=== PATIENT | male | born 1975 | race Caucasian/White ===

== ENCOUNTER 2017-09-11 21:16 | Emergency (ER) | payer MEDICAID ==
[~2017-09-11] VITALS: Ht 188 cm; Wt 137.9 kg
[~2017-09-11 21:16] MED LIST: ALBU8.5H8 IH; ASCO-238 PO; CELE200C PO; DEXL60CA3 PO; FEXO180T94 PO; FLUT16SP10 IH; HYDR-569 PO; KETO10TA2 PO; LACT1CAP65 PO; PANT-47 PO; SERT50TA PO
[2017-09-11] MEDS ORDERED: proparacaine 0.5% ophthalmic drops 15ml LEFTEYE ONE (23:25)
[2017-09-11] MEDS ORDERED: PRED5DRO OP (23:32)
[2017-09-11] MEDS ORDERED: DOXY100C2 PO (23:32)
[2017-09-12 00:31] VITALS: BP 135/72
== END 2017-09-12 00:33 | disposition home or self-care (01) ==
LOC: ER 21:17
DX: H00.14 Chalazion left upper eyelid (principal); K21.9 Gastro-esophageal reflux disease without esophagitis; Z98.890 Other specified postprocedural states; Z79.899 Other long term (current) drug therapy
CPT/HCPCS: 99283

== ENCOUNTER 2017-11-16 19:43 | Inpatient (IN) | payer MEDICAID ==
[~2017-11-16] VITALS: Ht 188 cm; Wt 136.0 kg
[~2017-11-16 19:43] MED LIST changes: +PRED5DRO OP
[2017-11-16 20:26] LABS: BASOPHILS % (AUTO) 0.1 % (0-1); EOSINOPHILS % (AUTO) 0.2 % (0-6); HEMATOCRIT 47.3 % (42.0-52.0); HEMOGLOBIN 16.3 g/dl (14.0-17.9); LYMPHOCYTES # (AUTO) 0.7 X10'3 (1.1-4.8); LYMPHOCYTES % (AUTO) 4.8 % (21-51); MEAN CORPUSCULAR HEMOGLOBIN 29.1 PG (27.0-31.0); MEAN CORPUSCULAR HGB CONC 34.5 % (33.0-36.5); MEAN CORPUSCULAR VOLUME 84.5 FL (78-98); MEAN PLATELET VOLUME 7.4 FL (7.4-10.4); MONOCYTES # (AUTO) 0.6 X10'3 (0-0.9); MONOCYTES % (AUTO) 3.6 % (2-12); NEUTROPHILS # (AUTO) 14.3 X10'3 (1.8-7.7); NEUTROPHILS % (AUTO) 91.3 % (42-75); PLATELET COUNT 233 X10'3 (140-440); RED CELL DISTRIBUTION WIDTH 13.8 % (11.5-14.5); WHITE BLOOD COUNT 15.7 X10'3 (4.5-11.0)
[2017-11-16 20:41] LABS: D-DIMER 0.61 MG/L FEU (0-0.50); PARTIAL THROMBOPLASTIN TIME 28 SECONDS (22-32); PROTHROMBIN TIME 10.1 SECONDS (9.0-12.0)
[2017-11-16 20:46] LABS: ALANINE AMINOTRANSFERASE 36 U/L (12-78); ALBUMIN 4.1 G/DL (3.4-5.0); ALBUMIN/GLOBULIN RATIO 1.1 (1.1-1.5); ALKALINE PHOSPHATASE 89 IU/L (46-116); ANION GAP 12 (8-16); ASPARTATE AMINO TRANSFERASE 20 U/L (10-37); BILIRUBIN,TOTAL 1.9 MG/DL (0.1-1.0); BLOOD UREA NITROGEN 12 MG/DL (7-18); BUN/CREATININE RATIO 11.1 (5.4-32.0); CALCIUM 8.8 MG/DL (8.5-10.1); CHLORIDE 103 MMOL/L (99-107); CREATININE 1.08 MG/DL (0.60-1.10); GLUCOSE 136 MG/DL (70-104); POTASSIUM 3.9 MMOL/L (3.5-5.1); SODIUM 141 MMOL/L (135-145); TOTAL CARBON DIOXIDE 26.2 MMOL/L (24-32); TOTAL PROTEIN 7.8 G/DL (6.4-8.2); eGFR 75 ML/MIN
[2017-11-16] MEDS ORDERED: levoFLOXACIN-Levaquin 500mg/D5 100 ML IV ONE (21:05)
[2017-11-16] MEDS ORDERED: normal saline 1000ml 1,000 ML IV ONE ×2 (21:05)
[2017-11-16] MEDS ORDERED: ondansetron/PF 4mg/2ml inj IV ONE ×2 (21:10→22:15)
[2017-11-16] MEDS ORDERED: iohexol 350MG/ML 100ml bottle IV ONE ×2 (21:28→21:42)
[2017-11-16] MEDS ORDERED: pantoprazole 40 MG vial IV ONE (22:15)
[2017-11-16] MEDS ORDERED: magnesium 4gm in 100ml NS 100 ML IV PRN (23:50)
[2017-11-16] MEDS ORDERED: ipratropium/albuterol 3ml nebule NEB PRN (23:50)
[2017-11-16] MEDS ORDERED: acetaminophen 325mg tablet PO PRN (23:50)
[2017-11-16] MEDS ORDERED: ondansetron/PF 4mg/2ml inj IV PRN (23:50)
[2017-11-16] MEDS ORDERED: morphine 4 MG/ML inj SYRINge IV PRN ×2 (23:50)
[2017-11-16] MEDS ORDERED: potassium Cl 40MEQ/NS 500ml 500 ML IV PRN ×2 (23:50)
[2017-11-16] MEDS ORDERED: magnesium 2GM in 50ml NS 50 ML IV PRN (23:50)
[2017-11-16] MEDS ORDERED: acetaminophen 650mg rectal suppository RC PRN (23:50)
[2017-11-16] MEDS: pantoprazole 40 MG vial IV SCH (23:50)
[2017-11-16] MEDS ORDERED: bisacodyl 10mg suppository rectal RC PRN (23:50)
[2017-11-16] MEDS ORDERED: ZOLP10TA5 PO (23:53)
[2017-11-16] MEDS ORDERED: METO-292 PO (23:53)
[2017-11-16] MEDS ORDERED: LORA10TA7 PO (23:53)
[2017-11-16] MEDS ORDERED: ALFU10TA PO (23:53)
[2017-11-16] MEDS ORDERED: OXYB10TA4 PO (23:53)
[2017-11-17] MEDS: piperacillin/tazo 3.375gm/50ml 50 ML IV SCH ×4 (00:25→20:36)
[2017-11-17] MEDS: normal saline 1000ml 1,000 ML IV SCH ×3 (00:26→13:35)
[2017-11-17 06:07] LABS: BASOPHILS % (AUTO) 0 % (0-1); EOSINOPHILS # (AUTO) 0.3 X10'3 (0-0.9); HEMATOCRIT 42.3 % (42.0-52.0); HEMOGLOBIN 14.6 g/dl (14.0-17.9); LYMPHOCYTES % (AUTO) 9.8 % (21-51); MEAN CORPUSCULAR HEMOGLOBIN 29.7 PG (27.0-31.0); MEAN CORPUSCULAR HGB CONC 34.5 % (33.0-36.5); MEAN CORPUSCULAR VOLUME 86.2 FL (78-98); MEAN PLATELET VOLUME 7.5 FL (7.4-10.4); MONOCYTES # (AUTO) 0.7 X10'3 (0-0.9); MONOCYTES % (AUTO) 6.7 % (2-12); NEUTROPHILS # (AUTO) 8.4 X10'3 (1.8-7.7); NEUTROPHILS % (AUTO) 80.5 % (42-75); PLATELET COUNT 222 X10'3 (140-440); RED BLOOD COUNT 4.91 X10'6 (4.70-6.10); RED CELL DISTRIBUTION WIDTH 13.8 % (11.5-14.5); WHITE BLOOD COUNT 10.5 X10'3 (4.5-11.0)
[2017-11-17] MEDS: enoxaparin 40mg/0.4ml syringe SQ SCH (06:48)
[2017-11-17 06:51] LABS: ALANINE AMINOTRANSFERASE 28 U/L (12-78); ALBUMIN 3.2 G/DL (3.4-5.0); ALBUMIN/GLOBULIN RATIO 1.1 (1.1-1.5); ALKALINE PHOSPHATASE 66 IU/L (46-116); ANION GAP 9 (8-16); ASPARTATE AMINO TRANSFERASE 16 U/L (10-37); BILIRUBIN,TOTAL 1.9 MG/DL (0.1-1.0); BLOOD UREA NITROGEN 11 MG/DL (7-18); BUN/CREATININE RATIO 11.3 (5.4-32.0); CALCIUM 8.3 MG/DL (8.5-10.1); CHLORIDE 107 MMOL/L (99-107); CREATININE 0.97 MG/DL (0.60-1.10); GLUCOSE 109 MG/DL (70-104); MAGNESIUM 1.9 MG/DL (1.5-2.4); POTASSIUM 3.5 MMOL/L (3.5-5.1); SODIUM 142 MMOL/L (135-145); TOTAL CARBON DIOXIDE 26.2 MMOL/L (24-32); TOTAL PROTEIN 6.2 G/DL (6.4-8.2); eGFR 84 ML/MIN
[2017-11-17] MEDS: lactobacillus rhamnosus 10,000 MMU CELLS/CAPSULE PO SCH ×2 (07:32→20:37)
[2017-11-17] MEDS: K and/or MAG REPLACEMENT MC SCH (07:33)
[2017-11-17] MEDS: pantoprazole 40 MG vial IV SCH ×2 (07:33→20:31)
[2017-11-17 13:14] VITALS: BP 102/70
[2017-11-17 20:00] VITALS: BP 128/81
[2017-11-17] MEDS: oxybutynin 5mg tablet PO SCH (20:38)
[2017-11-17] MEDS: benzocaine/menthol oral lozeng 1 EACH BOX MM PRN (20:40)
[2017-11-17] MEDS ORDERED: tamsulosin 0.4mg capsule PO SCH (21:00)
[2017-11-17] MEDS ORDERED: sertraline 50mg tablet PO SCH (21:00)
[2017-11-17] MEDS ORDERED: zolpidem 5mg tablet PO PRN (21:00)
[2017-11-18] VITALS: BP 116/65
[2017-11-18] MEDS: normal saline 1000ml 1,000 ML IV SCH (00:17)
[2017-11-18] MEDS: piperacillin/tazo 3.375gm/50ml 50 ML IV SCH ×2 (02:55→07:33)
[2017-11-18 05:42] LABS: BASOPHILS % (AUTO) 0.1 % (0-1); EOSINOPHILS # (AUTO) 0.4 X10'3 (0-0.9); EOSINOPHILS % (AUTO) 5.1 % (0-6); HEMATOCRIT 39.5 % (42.0-52.0); HEMOGLOBIN 13.5 g/dl (14.0-17.9); LYMPHOCYTES # (AUTO) 1.1 X10'3 (1.1-4.8); MEAN CORPUSCULAR HEMOGLOBIN 29.4 PG (27.0-31.0); MEAN CORPUSCULAR HGB CONC 34.1 % (33.0-36.5); MEAN PLATELET VOLUME 7.5 FL (7.4-10.4); MONOCYTES # (AUTO) 0.7 X10'3 (0-0.9); MONOCYTES % (AUTO) 9.2 % (2-12); NEUTROPHILS # (AUTO) 5.9 X10'3 (1.8-7.7); NEUTROPHILS % (AUTO) 72.6 % (42-75); PLATELET COUNT 210 X10'3 (140-440); RED BLOOD COUNT 4.59 X10'6 (4.70-6.10); RED CELL DISTRIBUTION WIDTH 14.1 % (11.5-14.5); WHITE BLOOD COUNT 8.2 X10'3 (4.5-11.0)
[2017-11-18 06:05] LABS: ALANINE AMINOTRANSFERASE 22 U/L (12-78); ALKALINE PHOSPHATASE 61 IU/L (46-116); ANION GAP 9 (8-16); ASPARTATE AMINO TRANSFERASE 17 U/L (10-37); BILIRUBIN,TOTAL 1.2 MG/DL (0.1-1.0); BLOOD UREA NITROGEN 11 MG/DL (7-18); BUN/CREATININE RATIO 10.6 (5.4-32.0); CALCIUM 8.2 MG/DL (8.5-10.1); CHLORIDE 108 MMOL/L (99-107); CREATININE 1.04 MG/DL (0.60-1.10); GLUCOSE 96 MG/DL (70-104); MAGNESIUM 1.8 MG/DL (1.5-2.4); POTASSIUM 3.6 MMOL/L (3.5-5.1); SODIUM 143 MMOL/L (135-145); TOTAL CARBON DIOXIDE 26.3 MMOL/L (24-32); eGFR 78 ML/MIN
[2017-11-18] MEDS ORDERED: metoclopramide 10mg tablet PO SCH (07:00)
[2017-11-18 07:03] VITALS: BP 106/71
[2017-11-18] MEDS: benzocaine/menthol oral lozeng 1 EACH BOX MM PRN (07:16)
[2017-11-18] MEDS: pantoprazole 40 MG vial IV SCH (07:33)
[2017-11-18] MEDS: enoxaparin 40mg/0.4ml syringe SQ SCH (07:34)
[2017-11-18] MEDS: lactobacillus rhamnosus 10,000 MMU CELLS/CAPSULE PO SCH (07:34)
[2017-11-18] MEDS: oxybutynin 5mg tablet PO SCH (07:34)
[2017-11-18] MEDS: K and/or MAG REPLACEMENT MC SCH (07:45)
[2017-11-18] MEDS ORDERED: loratadine 10mg tablet PO SCH (08:00)
[2017-11-18] MEDS ORDERED: celeCOXIB 100mg capsule PO SCH (08:00)
[2017-11-18] MEDS ORDERED: LEVO500T2 PO (11:55)
[2017-11-18 12:00] VITALS: BP 103/58
== END 2017-11-18 14:50 | disposition home or self-care (01) | DRG 720 ==
LOC: ER 19:44 → ED HOLD 23:50 → EDBEDREQ 11-17 00:22 → EDBEDREQDT 11-17 00:22 → SUR 3N 11-17 13:07
PROVIDERS: ADMIT Family Medicine; ATTEND Family Medicine
PROC: B3201ZZ Computerized Tomography (CT Scan) of Thoracic Aorta using Low Osmolar Contrast (ICD-10-PCS; principal; 2017-11-16)
DX: A41.9 Sepsis, unspecified organism (principal); J69.0 Pneumonitis due to inhalation of food and vomit; Z96.652 Presence of left artificial knee joint; K21.9 Gastro-esophageal reflux disease without esophagitis; N40.0 Benign prostatic hyperplasia without lower urinary tract symptoms; Z85.01 Personal history of malignant neoplasm of esophagus; Z90.49 Acquired absence of other specified parts of digestive tract; Z80.0 Family history of malignant neoplasm of digestive organs; Z80.3 Family history of malignant neoplasm of breast; Z80.8 Family history of malignant neoplasm of other organs or systems; Z82.49 Family history of ischemic heart disease and other diseases of the circulatory system; Z83.3 Family history of diabetes mellitus; Z87.442 Personal history of urinary calculi; Z87.891 Personal history of nicotine dependence; Z90.3 Acquired absence of stomach [part of]; Z98.84 Bariatric surgery status
CPT/HCPCS: 36415; 71045; 71275; 80053; 83605; 83735; 84484; 85025; 85379; 85610; 85730; 87040; 87070; 92616; 93005; 94760; 96361; 96365; 96375; 96376; 99285; C9113; J1650; J1956; J2405; J2543; J7030; J8597; Q9967

== ENCOUNTER 2018-04-05 18:45 | Emergency (ER) | payer MEDICAID ==
[~2018-04-05] VITALS: Ht 188 cm; Wt 140.9 kg
[~2018-04-05 18:45] MED LIST changes: -ALBU8.5H8 IH; +ALFU10TA PO; -ASCO-238 PO; -FEXO180T94 PO; -HYDR-569 PO; -KETO10TA2 PO; -LACT1CAP65 PO; +LORA10TA7 PO; +METO-292 PO; +OXYB10TA4 PO; -PANT-47 PO; -PRED5DRO OP; +ZOLP10TA5 PO
[2018-04-05 19:21] LABS: BASOPHILS % (AUTO) 0.1 % (0-1); EOSINOPHILS # (AUTO) 0.3 X10'3 (0-0.9); HEMATOCRIT 44.7 % (42.0-52.0); HEMOGLOBIN 15.1 g/dl (14.0-17.9); LYMPHOCYTES # (AUTO) 1.2 X10'3 (1.1-4.8); LYMPHOCYTES % (AUTO) 10.9 % (21-51); MEAN CORPUSCULAR HEMOGLOBIN 29.3 PG (27.0-31.0); MEAN CORPUSCULAR HGB CONC 33.8 % (33.0-36.5); MEAN CORPUSCULAR VOLUME 86.9 FL (78-98); MEAN PLATELET VOLUME 7.2 FL (7.4-10.4); MONOCYTES # (AUTO) 0.9 X10'3 (0-0.9); MONOCYTES % (AUTO) 8.2 % (2-12); NEUTROPHILS # (AUTO) 8.2 X10'3 (1.8-7.7); NEUTROPHILS % (AUTO) 77.8 % (42-75); PLATELET COUNT 271 X10'3 (140-440); RED BLOOD COUNT 5.14 X10'6 (4.70-6.10); RED CELL DISTRIBUTION WIDTH 13.5 % (11.5-14.5); WHITE BLOOD COUNT 10.6 X10'3 (4.5-11.0)
[2018-04-05 19:35] LABS: ALANINE AMINOTRANSFERASE 28 U/L (12-78); ALBUMIN 3.7 G/DL (3.4-5.0); ALKALINE PHOSPHATASE 82 IU/L (46-116); ANION GAP 6 (8-16); ASPARTATE AMINO TRANSFERASE 20 U/L (10-37); BILIRUBIN,TOTAL 1.1 MG/DL (0.1-1.0); BLOOD UREA NITROGEN 18 MG/DL (7-18); BUN/CREATININE RATIO 12.6 (5.4-32.0); CALCIUM 8.8 MG/DL (8.5-10.1); CHLORIDE 105 MMOL/L (99-107); CREATININE 1.43 MG/DL (0.60-1.10); GLUCOSE 101 MG/DL (70-104); POTASSIUM 3.9 MMOL/L (3.5-5.1); SODIUM 141 MMOL/L (135-145); TOTAL PROTEIN 7.3 G/DL (6.4-8.2); eGFR 54 ML/MIN
[2018-04-05 19:55] LABS: CLARITY,URINE CLEAR (Clear); COLOR,URINE YELLOW (Yellow); GLUCOSE, URINE NEGATIVE (Neg); KETONES,URINE NEGATIVE (Neg); LEUKOCYTE ESTERASE ,URINE NEGATIVE (Neg); NITRITES, URINE NEGATIVE (Neg); OCCULT BLOOD,URINE LARGE (Neg); PROTEIN,URINE NEGATIVE (Neg); UROBILINOGEN,URINE 0.2 E.U/dL (0.2-1.0)
[2018-04-05] MEDS ORDERED: ondansetron/PF 4mg/2ml inj IV ONE (19:55)
[2018-04-05] MEDS ORDERED: ketorolac trometh. 30mg/ml inj. IV ONE (19:55)
[2018-04-05] MEDS ORDERED: normal saline 1000ml 1,000 ML IV ONE (19:55)
[2018-04-05] MEDS ORDERED: HYDROcodone/acetaminophen 5mg/325mg tablet PO ONE (19:55)
[2018-04-05] MEDS ORDERED: TADA20TA PO (19:58)
[2018-04-05] MEDS ORDERED: ONDA8TAB9 PO (19:58)
[2018-04-05] MEDS ORDERED: HYDR-3965 PO (19:58)
[2018-04-05 20:15] LABS: UA COLLECTION TYPE VOIDED
[2018-04-05 20:23] LABS: SQUAMOUS EPITHELIAL CELL,UR FEW /LPF (FEW)
[2018-04-05 20:24] LABS: RBC,URINE 20-50 /HPF (0-2)
[2018-04-05 20:25] LABS: BACTERIA,URINE 1+ /HPF (Neg); WBC,URINE 0-4 /HPF (0-4)
[2018-04-05 20:42] VITALS: BP 124/69
== END 2018-04-05 20:43 | disposition home or self-care (01) ==
LOC: ER 18:45
DX: N20.0 Calculus of kidney (principal); K21.9 Gastro-esophageal reflux disease without esophagitis; N40.0 Benign prostatic hyperplasia without lower urinary tract symptoms
CPT/HCPCS: 36415; 80053; 81001; 85025; 85610; 96374; 96375; 99284; J1885; J2405; J7030

== ENCOUNTER 2018-06-25 14:15 | Emergency (ER) | payer SELFPAY ==
[~2018-06-25] VITALS: Ht 188 cm; Wt 113.5 kg
[~2018-06-25 14:15] MED LIST changes: +ONDA8TAB9 PO; +TADA20TA PO
[2018-06-25 14:18] VITALS: BP 121/80
[2018-06-25] MEDS ORDERED: TETanus/Pertussis (Acell)/Diphther VAC/PF (Tdap-Adult) 0.5ml syringe IM ONE (14:45)
== END 2018-06-25 15:58 | disposition home or self-care (01) ==
LOC: ER 14:15
DX: S61.210A Laceration without foreign body of right index finger without damage to nail, initial encounter (principal); K21.9 Gastro-esophageal reflux disease without esophagitis; Z87.442 Personal history of urinary calculi; Z98.890 Other specified postprocedural states; Z98.84 Bariatric surgery status; Z56.0 Unemployment, unspecified; Z79.899 Other long term (current) drug therapy; W26.0XXA Contact with knife, initial encounter; Y93.89 Activity, other specified; Y92.89 Other specified places as the place of occurrence of the external cause; Y99.9 Unspecified external cause status
CPT/HCPCS: 12001; 90471; 90715; 99283

== ENCOUNTER 2018-10-17 11:31 | Emergency (ER) | payer MEDICAID ==
[~2018-10-17] VITALS: Ht 188 cm; Wt 145.4 kg
[~2018-10-17 11:31] MED LIST changes: +AMOX-580 PO; +DEC4T PO; +FLUT16SP2 BOTHNARES
[2018-10-17 11:40] VITALS: BP 127/94
== END 2018-10-17 13:29 | disposition home or self-care (01) ==
LOC: ER 11:32
DX: B34.9 Viral infection, unspecified (principal); K21.9 Gastro-esophageal reflux disease without esophagitis; Z87.442 Personal history of urinary calculi; Z98.890 Other specified postprocedural states; Z98.84 Bariatric surgery status; Z56.0 Unemployment, unspecified; Z79.899 Other long term (current) drug therapy
CPT/HCPCS: 71045; 99283

== ENCOUNTER 2019-09-01 17:08 | Emergency (ER) | payer MEDICAID ==
[~2019-09-01] VITALS: Ht 188 cm; Wt 149.0 kg
[~2019-09-01 17:08] MED LIST changes: -AMOX-580 PO
[2019-09-01] MEDS ORDERED: LIDOcaine 1% W/epiNEPHrine 1:200,000 10ml vial IJ ONE (18:45)
[2019-09-01] MEDS ORDERED: CLIN-90 PO (19:00)
[2019-09-01 19:08] VITALS: BP 135/87
== END 2019-09-01 19:15 | disposition home or self-care (01) ==
LOC: ER 17:09
DX: L02.214 Cutaneous abscess of groin (principal); K21.9 Gastro-esophageal reflux disease without esophagitis; Z56.0 Unemployment, unspecified; Z87.442 Personal history of urinary calculi; Z98.890 Other specified postprocedural states; Z98.84 Bariatric surgery status; Z79.899 Other long term (current) drug therapy
CPT/HCPCS: 10060; 99283

== ENCOUNTER 2020-08-20 12:03 | Emergency (ER) | payer MEDICAID ==
[~2020-08-20] VITALS: Ht 185.4 cm; Wt 140.9 kg
[~2020-08-20 12:03] MED LIST changes: +CLIN-97 PO
[2020-08-20 12:10] VITALS: BP 129/85
[2020-08-20] MEDS ORDERED: oxyCODONE/APAP 10/325mg tablet PO ONE (12:30)
[2020-08-20] MEDS ORDERED: OXYC-145 PO (12:47)
== END 2020-08-20 13:36 | disposition home or self-care (01) ==
LOC: ER 12:03
DX: M25.562 Pain in left knee (principal); M25.462 Effusion, left knee; K21.9 Gastro-esophageal reflux disease without esophagitis; Z87.442 Personal history of urinary calculi; Z85.9 Personal history of malignant neoplasm, unspecified; Z98.890 Other specified postprocedural states; Z72.89 Other problems related to lifestyle; Z56.0 Unemployment, unspecified; Z79.2 Long term (current) use of antibiotics; Z79.899 Other long term (current) drug therapy
CPT/HCPCS: 29505; 73560; 99283

== ENCOUNTER 2021-04-06 11:04 | Inpatient (IN) | payer MEDICAID ==
[2021-04-06] VITALS (14 sets, daily range): BP systolic 116–139; BP diastolic 71–86
[~2021-04-06] VITALS: Ht 188 cm; Wt 134.6 kg
[~2021-04-06 11:04] MED LIST changes: +OXYC-145 PO
[2021-04-06 12:15] LABS: BASOPHILS % (AUTO) 0.1 % (0-1); EOSINOPHILS # (AUTO) 0.2 X10'3 (0-0.9); EOSINOPHILS % (AUTO) 1.7 % (0-6); HEMATOCRIT 41.7 % (42.0-52.0); HEMOGLOBIN 13.2 g/dl (14.0-17.9); LYMPHOCYTES % (AUTO) 10.2 % (21-51); MEAN CORPUSCULAR HEMOGLOBIN 26.4 PG (27.0-31.0); MEAN CORPUSCULAR HGB CONC 31.8 g/dL (33.0-36.5); MEAN PLATELET VOLUME 7.5 FL (7.4-10.4); MONOCYTES # (AUTO) 0.9 X10'3 (0-0.9); MONOCYTES % (AUTO) 9.8 % (2-12); NEUTROPHILS # (AUTO) 7.4 X10'3 (1.8-7.7); NEUTROPHILS % (AUTO) 78.2 % (42-75); PLATELET COUNT 289 X10'3 (140-440); RED BLOOD COUNT 5.02 X10'6 (4.70-6.10); RED CELL DISTRIBUTION WIDTH 14.5 % (11.5-14.5); WHITE BLOOD COUNT 9.5 X10'3 (4.5-11.0)
[2021-04-06 12:16] LABS: CLARITY,URINE CLOUDY (Clear); COLOR,URINE YELLOW (Yellow); GLUCOSE, URINE NEGATIVE (Neg); KETONES,URINE NEGATIVE (Neg); LEUKOCYTE ESTERASE ,URINE NEGATIVE (Neg); NITRITES, URINE NEGATIVE (Neg); OCCULT BLOOD,URINE LARGE (Neg); PROTEIN,URINE NEGATIVE (Neg); UROBILINOGEN,URINE 0.2 E.U/dL (0.2-1.0)
[2021-04-06 12:22] LABS: UA COLLECTION TYPE CLN CATCH MIDSTREAM
[2021-04-06 12:23] LABS: MUCUS STRANDS FEW /LPF (Neg); SQUAMOUS EPITHELIAL CELL,UR FEW /LPF (FEW)
[2021-04-06 12:24] LABS: RBC,URINE TNTC /HPF (0-2); WBC,URINE 0-4 /HPF (0-4)
[2021-04-06 12:25] LABS: BACTERIA,URINE 1+ /HPF (Neg)
[2021-04-06 12:28] LABS: ALANINE AMINOTRANSFERASE 21 U/L (12-78); ALBUMIN 4.2 G/DL (3.4-5.0); ALBUMIN/GLOBULIN RATIO 1.3 (1.1-1.5); ALKALINE PHOSPHATASE 87 IU/L (46-116); ANION GAP 9 (8-16); ASPARTATE AMINO TRANSFERASE 15 U/L (10-37); BILIRUBIN,TOTAL 1.4 MG/DL (0.1-1.0); BLOOD UREA NITROGEN 19 MG/DL (7-18); BUN/CREATININE RATIO 13.7 (5.4-32.0); CALCIUM 8.5 MG/DL (8.5-10.1); CHLORIDE 108 MMOL/L (99-107); CREATININE 1.39 MG/DL (0.60-1.10); GLUCOSE 102 MG/DL (70-104); POTASSIUM 3.9 MMOL/L (3.5-5.1); SODIUM 140 MMOL/L (135-145); TOTAL CARBON DIOXIDE 22.6 MMOL/L (24-32); TOTAL PROTEIN 7.5 G/DL (6.4-8.2); eGFR 55 ML/MIN
[2021-04-06] MEDS ORDERED: morphine 4 MG/ML inj SYRINge IV ONE (13:35)
[2021-04-06] MEDS ORDERED: ondansetron/PF 4mg/2ml inj IV ONE (13:35)
[2021-04-06] MEDS ORDERED: normal saline 1000ml 1,000 ML IV ONE (13:55)
[2021-04-06] MEDS ORDERED: magnesium hydroxide 30ml (MOM) UD suspension PO PRN (14:05)
[2021-04-06] MEDS ORDERED: mag hydrox/Alum hydrox/simeth 30ml oral suspension PO PRN (14:05)
[2021-04-06] MEDS ORDERED: ondansetron/PF 4mg/2ml inj IV PRN ×2 (14:05→14:55)
[2021-04-06] MEDS ORDERED: morphine 2 MG/ML inj. syringe IV PRN ×3 (14:05→14:55)
[2021-04-06] MEDS ORDERED: acetaminophen 325mg tablet PO PRN (14:05)
[2021-04-06] MEDS ORDERED: MELO-102 PO (14:12)
[2021-04-06] MEDS ORDERED: Meloxicam 15MG TAB PO PRN (14:45)
[2021-04-06] MEDS ORDERED: morphine 4 MG/ML inj SYRINge IV PRN (14:55)
[2021-04-06] MEDS ORDERED: ringers solution, lacted 1,000 ML IV ONE (14:55)
[2021-04-06] MEDS ORDERED: hydrALAZINE 20mg/ml inj. IV PRN (14:55)
[2021-04-06] MEDS ORDERED: famotidine/PF 10 mg/ml inj IV STA (14:55)
[2021-04-06] MEDS ORDERED: labetalol 20mg/4ml (5mg/ml) syringe IV PRN (14:55)
[2021-04-06] MEDS ORDERED: fentaNYL/PF 50MCG/1 ML 2ML syringe IV PRN ×2 (14:55)
[2021-04-06] MEDS ORDERED: ringers solution, lacted 1,000 ML IV SCH (14:55)
[2021-04-06] MEDS ORDERED: midazolam 1 mg/ML 2ml injection ONE (15:53)
[2021-04-06] MEDS ORDERED: fentaNYL/PF 50MCG/1 ML 2ML syringe ONE (15:53)
[2021-04-06] MEDS ORDERED: LIDOcaine 2% (20mg/ml) 5ml vial ONE (15:56)
[2021-04-06] MEDS ORDERED: succinylcholine 20mg/ml inj IV ONE (15:56)
[2021-04-06] MEDS ORDERED: propofol inj 20 ML IV ONE ×2 (15:56)
[2021-04-06] MEDS ORDERED: dexamethasone sod phosphate 4mg/ml inj. ONE (15:56)
[2021-04-06] MEDS ORDERED: ondansetron/PF 4mg/2ml inj ONE (15:57)
[2021-04-06] MEDS ORDERED: sevoflurane 250ml liquid IH ONE (16:20)
[2021-04-06] MEDS ORDERED: iohexol 300 MG/1 ML 50ml polymer ONE (16:22)
[2021-04-06] MEDS ORDERED: ceFAZolin 1000mg inj ONE ×2 (16:32)
--- NOTE | 2021-04-06 16:58 | NUR ---
Received from OR via , accompanied by Anesthesiologist DR PINO and report given by Anesthesiolgist. AWAKENS TO VOICE. VITALS STABLE. CHUCK PAIN.
--- NOTE | 2021-04-06 17:50 | NUR ---
Patient in room ED 4. I have received report from CHERRIE BEGUM and had the opportunity to ask questions and awaiting patients arrival
--- NOTE | 2021-04-06 17:58 | NUR ---
Report called to receiving nurse. Transferred via BED Belongings . Special Issues communicated to receiving nurse. AWAKE AND ORIENTED. VITALS STABLE. STATES PAIN IMPROVING. TO SURGICAL RM 350A AT THIS TIME.
--- NOTE | 2021-04-06 18:00 | NUR ---
Patient in room [facility] 350. I have received report from Braydon BEGUM and had the opportunity to ask questions and assume patient care.
--- NOTE | 2021-04-06 19:01 | NUR ---
patient settled in room at shift change report given to Imelda BEGUM
[2021-04-06] MEDS: docusate sod 100mg capsule PO SCH (19:24)
[2021-04-06] MEDS: oxybutynin 5mg tablet PO SCH (19:24)
[2021-04-06] MEDS ORDERED: zolpidem 5mg tablet PO PRN (21:00)
[2021-04-06] MEDS ORDERED: sertraline 50mg tablet PO SCH (21:00)
[2021-04-06] MEDS ORDERED: tamsulosin 0.4mg capsule PO SCH (21:00)
[2021-04-06] MEDS: normal saline 1000ml 1,000 ML IV SCH (22:34)
[2021-04-07] VITALS: BP 127/77
[2021-04-07] MEDS: normal saline 1000ml 1,000 ML IV SCH ×2 (00:05→10:05)
--- NOTE | 2021-04-07 06:40 | NUR ---
Patient in room [facility] 350. I have received report from Imelda BEGUM and had the opportunity to ask questions and assume patient care.
[2021-04-07 06:47] LABS: BASOPHILS % (AUTO) 0 % (0-1); EOSINOPHILS % (AUTO) 0 % (0-6); HEMATOCRIT 37.1 % (42.0-52.0); HEMOGLOBIN 11.8 g/dl (14.0-17.9); LYMPHOCYTES # (AUTO) 0.7 X10'3 (1.1-4.8); LYMPHOCYTES % (AUTO) 6.5 % (21-51); MEAN CORPUSCULAR HGB CONC 31.9 g/dL (33.0-36.5); MEAN CORPUSCULAR VOLUME 81.5 FL (78-98); MEAN PLATELET VOLUME 7.8 FL (7.4-10.4); MONOCYTES # (AUTO) 0.6 X10'3 (0-0.9); MONOCYTES % (AUTO) 5.2 % (2-12); NEUTROPHILS % (AUTO) 88.3 % (42-75); PLATELET COUNT 287 X10'3 (140-440); RED BLOOD COUNT 4.55 X10'6 (4.70-6.10); RED CELL DISTRIBUTION WIDTH 14.4 % (11.5-14.5); WHITE BLOOD COUNT 11.4 X10'3 (4.5-11.0)
[2021-04-07 06:58] LABS: ALBUMIN 3.4 G/DL (3.4-5.0); ANION GAP 11 (8-16); BLOOD UREA NITROGEN 17 MG/DL (7-18); BUN/CREATININE RATIO 13.9 (5.4-32.0); CHLORIDE 107 MMOL/L (99-107); CREATININE 1.22 MG/DL (0.60-1.10); GLUCOSE 141 MG/DL (70-104); POTASSIUM 3.9 MMOL/L (3.5-5.1); SODIUM 141 MMOL/L (135-145); TOTAL CARBON DIOXIDE 22.6 MMOL/L (24-32); eGFR 64 ML/MIN
[2021-04-07 07:00] VITALS: BP 129/82
--- NOTE | 2021-04-07 07:05 | NUR ---
Problems reprioritized. Patient report given, questions answered & plan of care reviewed with SHY Brock.
[2021-04-07] MEDS ORDERED: pantoprazole 40mg Tablet.DR PO SCH (08:00)
[2021-04-07] MEDS ORDERED: COVID-19 VACC, MRNA(PFIZER)/PF--BNT162b2 syringe IMVAC ONE (09:00)
[2021-04-07] MEDS: oxybutynin 5mg tablet PO SCH (09:21)
[2021-04-07] MEDS: docusate sod 100mg capsule PO SCH (09:21)
--- NOTE | 2021-04-07 09:52 | NUR ---
PAGER ID: [phone] MESSAGE: Delmy-Surg [id number] Re: sales Frank we don't carry Meloxicam what would you like to give him for pain
--- NOTE | 2021-04-07 10:40 | NUR ---
Per Dr Robert Jay for patient to be discharged his office will call patient for follow up visit. No need for any antibiotics.
--- NOTE | 2021-04-07 10:43 | NUR ---
PAGER ID: [phone] MESSAGE: Delmy-Surg [id number] Re: [id number] Dr Robert isaac for discharge his office will make follow up visiti, can I give Motrin to patient please call
[2021-04-07] MEDS ORDERED: ibuprofen 200mg tablet PO ONE (10:45)
--- NOTE | 2021-04-07 11:00 | NUR ---
Problems reprioritized. Patient report given, questions answered & plan of care reviewed with Shabbir BEGUM.
--- NOTE | 2021-04-07 11:09 | NUR ---
Patient in room [facility] 350. I have received report from SHY MACHUCA and had the opportunity to ask questions and assume patient care.
--- NOTE | 2021-04-07 11:58 | NUR ---
Patient is alert and oriented no complaints or s/s of apparent distress. Discussed with patient discharge instructions. Patient verbalizes understanding of teaching. New urine strainer, graduated cylinder and urinal given to patient to take home. Patient ready for dc and awaiting family for transport home. Patient has all personal belongings packed.
--- NOTE | 2021-04-07 12:03 | NUR ---
Patient dc'd with all personal belongings. Patient preferred to ambulate. He was escorted out by JONATAN Sherwood.
== END 2021-04-07 12:02 | disposition home or self-care (01) | DRG 465 ==
LOC: ER 11:04 → ED HOLD 14:07 → SUR 3N 18:05
PROVIDERS: ADMIT Family Medicine; ATTEND Family Medicine
PROC: BT141ZZ Fluoroscopy of Kidneys, Ureters and Bladder using Low Osmolar Contrast (ICD-10-PCS; 2021-04-06)
PROC: 0T788DZ Dilation of Bilateral Ureters with Intraluminal Device, Via Natural or Artificial Opening Endoscopic (ICD-10-PCS; principal; 2021-04-06 16:20)
PROC: XW023U6 Introduction of COVID-19 Vaccine into Muscle, Percutaneous Approach, New Technology Group 6 (ICD-10-PCS; 2021-04-07)
DX: N13.2 Hydronephrosis with renal and ureteral calculous obstruction (principal); N17.9 Acute kidney failure, unspecified; Z96.652 Presence of left artificial knee joint; K21.9 Gastro-esophageal reflux disease without esophagitis; Z20.822 Contact with and (suspected) exposure to COVID-19; N40.0 Benign prostatic hyperplasia without lower urinary tract symptoms; Z80.0 Family history of malignant neoplasm of digestive organs; Z80.3 Family history of malignant neoplasm of breast; Z80.8 Family history of malignant neoplasm of other organs or systems; Z82.49 Family history of ischemic heart disease and other diseases of the circulatory system; Z83.3 Family history of diabetes mellitus; Z85.01 Personal history of malignant neoplasm of esophagus; Z87.01 Personal history of pneumonia (recurrent); Z87.442 Personal history of urinary calculi; Z98.84 Bariatric surgery status; Z23 Encounter for immunization; Z79.899 Other long term (current) drug therapy
CPT/HCPCS: 0002A; 36415; 74176; 76000; 80048; 80053; 81001; 85025; 87081; 87635; 91300; 96374; 96375; 99285; A4618; C1758; C1769; C2617; G0378; J0330; J0690; J1100; J2001; J2250; J2270; J2405; J2704; J3010; J7030; Q9967

== ENCOUNTER 2021-06-22 19:37 | Emergency (ER) | payer MEDICAID ==
[~2021-06-22] VITALS: Ht 188 cm; Wt 138.6 kg
[~2021-06-22 19:37] MED LIST changes: -CELE200C PO; -CLIN-97 PO; -DEC4T PO; -FLUT16SP10 IH; -FLUT16SP2 BOTHNARES; -LORA10TA7 PO; +MELO-102 PO; -METO-292 PO; -ONDA8TAB9 PO; -OXYC-145 PO; -TADA20TA PO
[2021-06-22 19:46] VITALS: BP 152/101
[2021-06-22] MEDS ORDERED: bacitracin 15gm ointment TP ONE (20:10)
== END 2021-06-22 21:01 | disposition home or self-care (01) ==
LOC: ER 19:37
DX: S61.411A Laceration without foreign body of right hand, initial encounter (principal); K21.9 Gastro-esophageal reflux disease without esophagitis; Z87.442 Personal history of urinary calculi; Z85.9 Personal history of malignant neoplasm, unspecified; Z98.890 Other specified postprocedural states; Z72.89 Other problems related to lifestyle; Z56.0 Unemployment, unspecified; Z79.899 Other long term (current) drug therapy; W45.8XXA Other foreign body or object entering through skin, initial encounter; Y93.89 Activity, other specified; Y92.89 Other specified places as the place of occurrence of the external cause; Y99.8 Other external cause status
CPT/HCPCS: 12001; 99282; 99283; 99284

== ENCOUNTER 2023-04-24 21:30 | Emergency (ER) | payer MEDICAID ==
[~2023-04-24] VITALS: Ht 188 cm; Wt 136.4 kg
[2023-04-24 21:49] VITALS: BP 133/85; RESP 16
[2023-04-24 22:36] LABS: BASOPHILS % (AUTO) 0.5 % (0-1); EOSINOPHILS # (AUTO) 0.1 X10'3 (0-0.9); EOSINOPHILS % (AUTO) 1.2 % (0-6); HEMOGLOBIN 14.2 g/dl (14.0-17.9); LYMPHOCYTES # (AUTO) 0.5 X10'3 (1.1-4.8); LYMPHOCYTES % (AUTO) 10.4 % (21-51); MEAN CORPUSCULAR HEMOGLOBIN 28.9 PG (27.0-31.0); MEAN CORPUSCULAR HGB CONC 32.9 g/dL (33.0-36.5); MEAN CORPUSCULAR VOLUME 87.8 FL (78-98); MEAN PLATELET VOLUME 7.8 FL (7.4-10.4); MONOCYTES # (AUTO) 0.8 X10'3 (0-0.9); MONOCYTES % (AUTO) 15.4 % (2-12); NEUTROPHILS # (AUTO) 3.7 X10'3 (1.8-7.7); NEUTROPHILS % (AUTO) 72.5 % (42-75); PLATELET COUNT 223 X10'3 (140-440); RED CELL DISTRIBUTION WIDTH 14.2 % (11.5-14.5); WHITE BLOOD COUNT 5.1 X10'3 (4.5-11.0)
[2023-04-24 22:50] LABS: ALANINE AMINOTRANSFERASE 26 U/L (12-78); ALBUMIN 3.7 G/DL (3.4-5.0); ALBUMIN/GLOBULIN RATIO 1.1 (1.1-1.5); ALKALINE PHOSPHATASE 86 IU/L (46-116); ANION GAP 11 (8-16); ASPARTATE AMINO TRANSFERASE 21 U/L (10-37); BILIRUBIN,TOTAL 0.8 MG/DL (0.1-1.0); BLOOD UREA NITROGEN 8 MG/DL (7-18); BUN/CREATININE RATIO 7.9 (10.0-20.0); CALCIUM 8.7 MG/DL (8.5-10.1); CHLORIDE 104 MMOL/L (99-107); CREATININE 1.01 MG/DL (0.60-1.10); GLUCOSE 109 MG/DL (70-104); POTASSIUM 3.6 MMOL/L (3.5-5.1); SODIUM 138 MMOL/L (135-145); TOTAL CARBON DIOXIDE 23.5 MMOL/L (24-32); eCRCL 104 ML/MIN; eGFR 79 ML/MIN
[2023-04-24 23:22] VITALS: PULSE 106; O2SAT 98
[2023-04-24] MEDS ORDERED: acetaminophen 325mg tablet PO ONE (23:35)
[2023-04-25] MEDS ORDERED: NIRM1TAB PO (00:15)
[2023-04-25 00:30] VITALS: TEMP 101.6
[2023-04-25 01:38] LABS: PLATELET ESTIMATE NORMAL; TOTAL CELLS COUNTED 100
== END 2023-04-25 00:33 | disposition home or self-care (01) ==
LOC: ER 21:31
DX: U07.1 COVID-19 (principal); K21.9 Gastro-esophageal reflux disease without esophagitis; Z79.899 Other long term (current) drug therapy
CPT/HCPCS: 36415; 71045; 80053; 83605; 85007; 85025; 87040; 87502; 87503; 87811; 99284

== ENCOUNTER 2024-01-30 06:58 | Inpatient (IN) | payer MEDICAID ==
[2024-01-27 11:49] LABS: BASOPHILS % (AUTO) 0.3 % (0-1); EOSINOPHILS # (AUTO) 0.2 X10'3 (0-0.9); EOSINOPHILS % (AUTO) 3.5 % (0-6); HEMATOCRIT 36.2 % (42.0-52.0); HEMOGLOBIN 11.7 g/dl (14.0-17.9); LYMPHOCYTES # (AUTO) 1.4 X10'3 (1.1-4.8); LYMPHOCYTES % (AUTO) 21.3 % (21-51); MEAN CORPUSCULAR HEMOGLOBIN 26.7 PG (27.0-31.0); MEAN CORPUSCULAR HGB CONC 32.3 g/dL (33.0-36.5); MEAN CORPUSCULAR VOLUME 82.6 FL (78-98); MEAN PLATELET VOLUME 7.3 FL (7.4-10.4); MONOCYTES # (AUTO) 0.7 X10'3 (0-0.9); MONOCYTES % (AUTO) 10.4 % (2-12); NEUTROPHILS # (AUTO) 4.3 X10'3 (1.8-7.7); NEUTROPHILS % (AUTO) 64.5 % (42-75); PLATELET COUNT 299 X10'3 (140-440); RED BLOOD COUNT 4.38 X10'6 (4.70-6.10); RED CELL DISTRIBUTION WIDTH 15.2 % (11.5-14.5); WHITE BLOOD COUNT 6.7 X10'3 (4.5-11.0)
[2024-01-27 12:01] LABS: ALANINE AMINOTRANSFERASE 28 U/L (12-78); ALBUMIN 3.6 G/DL (3.4-5.0); ALBUMIN/GLOBULIN RATIO 1.1 (1.1-1.5); ALKALINE PHOSPHATASE 81 IU/L (46-116); ANION GAP 7 (8-16); ASPARTATE AMINO TRANSFERASE 18 U/L (10-37); BLOOD UREA NITROGEN 12 MG/DL (7-18); BUN/CREATININE RATIO 11.4 (10.0-20.0); CALCIUM 8.5 MG/DL (8.5-10.1); CHLORIDE 106 MMOL/L (99-107); CREATININE 1.05 MG/DL (0.60-1.10); GLUCOSE 103 MG/DL (70-104); POTASSIUM 3.7 MMOL/L (3.5-5.1); SODIUM 141 MMOL/L (135-145); TOTAL CARBON DIOXIDE 27.9 MMOL/L (24-32); TOTAL PROTEIN 6.9 G/DL (6.4-8.2); eGFR 75 ML/MIN
[~2024-01-30] VITALS: Ht 185.4 cm; Wt 142.1 kg
[2024-01-30] VITALS (20 sets, daily range): BP systolic 117–143; BP diastolic 66–90; PULSE 65–93; RESP 11–18; TEMP 96.8–98.6; O2SAT 95–99
[2024-01-30] MEDS: Cefazolin 3 GM/100ML NS IVPB 100 ML IV ONE (05:30)
[~2024-01-30 06:58] MED LIST changes: +ALLO300T8 PO; +DULO30CA52 PO; +HYDR-3965 PO; -MELO-102 PO
[2024-01-30] MEDS: tranexamic acid 650mg tablet PO ONE (07:53)
[2024-01-30] MEDS: vancomycin 1,500 MG in NS 300ml IV soln IV ONE (07:53)
[2024-01-30] MEDS: ringers solution, lacted 1,000 ML IV SCH ×2 (07:53→13:15)
[2024-01-30] MEDS: famotidine 20mg tablet PO ONE (07:53)
[2024-01-30] MEDS: ondansetron/PF 4mg/2ml inj IM ONE (11:01)
[2024-01-30] MEDS: citric acid/sodium citrate 15ml oral solution PO ONE (11:18)
[2024-01-30] MEDS ORDERED: BUPIVAcaine/dex-water/PF 7.5 mg/ml 2ml ampul ONE (11:22)
[2024-01-30] MEDS ORDERED: fentaNYL/PF 50MCG/1 ML 2ML syringe ONE (11:37)
[2024-01-30] MEDS ORDERED: MIDAZolam 1 MG/ML 5ML VIAL ONE (11:38)
[2024-01-30] MEDS: BUPIVACAINE/MELOXICAM 14 ML VIAL IL ONE (11:44)
[2024-01-30] MEDS ORDERED: proCHLORperazine 10 MG/2 ml inj IV PRN (13:15)
[2024-01-30] MEDS ORDERED: enalaprilat dihydrate 2.5mg/2ml vial IV PRN (13:15)
[2024-01-30] MEDS ORDERED: morphine 2 MG/ML inj. syringe IV PRN (13:15)
[2024-01-30] MEDS ORDERED: ondansetron/PF 4mg/2ml inj IV PRN ×2 (13:15→14:15)
[2024-01-30] MEDS ORDERED: meperidine/PF 25mg/ml syringe IV PRN ×3 (13:15)
[2024-01-30] MEDS ORDERED: morphine 4 MG/ML inj SYRINge IV PRN (13:15)
[2024-01-30] MEDS ORDERED: labetalol 20mg/4ml (5mg/ml) syringe IV PRN (13:15)
[2024-01-30] MEDS ORDERED: ROPIVAcaine 0.5% (5mg/ml) 30ml vial ONE (13:27)
[2024-01-30] MEDS ORDERED: dexamethasone sod phosphate 4mg/ml inj. ONE (13:27)
[2024-01-30] MEDS ORDERED: magnesium hydroxide 30ml (MOM) UD suspension PO PRN (14:15)
[2024-01-30] MEDS ORDERED: acetaminophen 325mg tablet PO PRN (14:15)
[2024-01-30] MEDS ORDERED: HYDROmorphone inj. 0.5 MG/0.5 ML DISP.SYRIN IV PRN (14:15)
[2024-01-30] MEDS ORDERED: oxyCODONE IR 5mg (immed. release) tablet PO PRN (14:15)
[2024-01-30] MEDS ORDERED: HYDROmorphone 1 mg/ml syringe IV PRN (14:15)
[2024-01-30] MEDS ORDERED: diphenhydrAMINE 25mg capsule PO PRN ×2 (14:15)
[2024-01-30] MEDS ORDERED: bisacodyl 10mg suppository rectal RC PRN (14:15)
[2024-01-30] MEDS ORDERED: naloxone 0.4 mg/ml inj IV PRN (14:15)
[2024-01-30] MEDS ORDERED: HYDROcodone/acetaminophen 5mg/325mg tablet PO PRN (14:15)
[2024-01-30] MEDS ORDERED: ceFAZolin/D5W- 1GM premix 50 ML IV SCH (16:00)
[2024-01-30] MEDS: potassium cl 20mEq in 1/2 NS 1,000 ML IV SCH (16:21)
[2024-01-30] MEDS: aspirin 325mg tablet PO SCH (17:30)
[2024-01-30] MEDS: ketorolac trometh. 30mg/ml inj. ONE (17:30)
[2024-01-30] MEDS: ROPIVAcaine 0.5% (5mg/ml) 30ml vial ONE (17:30)
[2024-01-30] MEDS: oxyCODONE IR 5mg (immed. release) tablet PO PRN (18:53)
[2024-01-30] MEDS: ceFAZolin/D5W- 1GM premix 50 ML IV SCH (20:17)
[2024-01-30] MEDS: allopurinol 300 MG tablet PO SCH (20:20)
[2024-01-30] MEDS: vancomycin/NS 1 GM ADD-VANTAGE 250 ML IV SCH (20:21)
[2024-01-30] MEDS: oxybutynin 5mg tablet PO SCH (20:21)
[2024-01-30] MEDS: acetaminophen 325mg tablet PO SCH (20:21)
[2024-01-30] MEDS: sennosides 8.6mg tablet PO SCH (20:21)
[2024-01-30] MEDS: sertraline 50mg tablet PO SCH (20:21)
[2024-01-30] MEDS: duloxetine 30mg CAPSULE.DR PO SCH (20:21)
[2024-01-30] MEDS ORDERED: alfuzosin 10MG TAB.SR.24H PO SCH (21:00)
[2024-01-30] MEDS: tamsulosin 0.4mg capsule PO SCH (21:23)
[2024-01-31 02:00] VITALS: BP 106/62; PULSE 96; RESP 15; TEMP 98.7; O2SAT 98
[2024-01-31 06:00] VITALS: BP 115/69; PULSE 81; RESP 16; TEMP 97.4; O2SAT 98
[2024-01-31 08:25] LABS: BASOPHILS % (AUTO) 0.1 % (0-1); EOSINOPHILS % (AUTO) 0.1 % (0-6); HEMATOCRIT 37.5 % (42.0-52.0); LYMPHOCYTES # (AUTO) 1.1 X10'3 (1.1-4.8); LYMPHOCYTES % (AUTO) 6.7 % (21-51); MEAN CORPUSCULAR HEMOGLOBIN 26.5 PG (27.0-31.0); MEAN CORPUSCULAR VOLUME 82.8 FL (78-98); MEAN PLATELET VOLUME 7.9 FL (7.4-10.4); MONOCYTES # (AUTO) 1.2 X10'3 (0-0.9); MONOCYTES % (AUTO) 7.1 % (2-12); NEUTROPHILS # (AUTO) 14.2 X10'3 (1.8-7.7); PLATELET COUNT 313 X10'3 (140-440); RED BLOOD COUNT 4.52 X10'6 (4.70-6.10); WHITE BLOOD COUNT 16.5 X10'3 (4.5-11.0)
[2024-01-31 08:54] LABS: ANION GAP 9 (8-16); CHLORIDE 102 MMOL/L (99-107); POTASSIUM 4.1 MMOL/L (3.5-5.1); SODIUM 137 MMOL/L (135-145); TOTAL CARBON DIOXIDE 25.6 MMOL/L (24-32)
[2024-01-31] MEDS: pantoprazole 40mg Tablet.DR PO SCH (08:59)
[2024-01-31 10:00] VITALS: BP 112/71; PULSE 87; RESP 18; TEMP 97.1; O2SAT 100
[2024-01-31 10:14] VITALS: RESP 16; O2SAT 98
[2024-01-31 18:00] VITALS: BP 115/69; PULSE 86; RESP 17; TEMP 97.7; O2SAT 99
[2024-01-31] MEDS: celeCOXIB 100mg capsule PO SCH (21:11)
[2024-01-31] MEDS: zolpidem 5mg tablet PO PRN (21:11)
[2024-01-31 22:00] VITALS: BP 122/83; PULSE 96; RESP 16; TEMP 98.1; O2SAT 98
[2024-02-01 06:44] VITALS: BP 131/82; PULSE 90; RESP 16; TEMP 98.9; O2SAT 98
[2024-02-01 07:33] LABS: BASOPHILS % (AUTO) 0.2 % (0-1); EOSINOPHILS # (AUTO) 0.1 X10'3 (0-0.9); EOSINOPHILS % (AUTO) 0.6 % (0-6); HEMATOCRIT 35.9 % (42.0-52.0); HEMOGLOBIN 11.7 g/dl (14.0-17.9); LYMPHOCYTES # (AUTO) 1.4 X10'3 (1.1-4.8); LYMPHOCYTES % (AUTO) 12.3 % (21-51); MEAN CORPUSCULAR HEMOGLOBIN 26.8 PG (27.0-31.0); MEAN CORPUSCULAR HGB CONC 32.4 g/dL (33.0-36.5); MEAN CORPUSCULAR VOLUME 82.5 FL (78-98); MEAN PLATELET VOLUME 7.8 FL (7.4-10.4); MONOCYTES # (AUTO) 1.4 X10'3 (0-0.9); MONOCYTES % (AUTO) 12.4 % (2-12); NEUTROPHILS # (AUTO) 8.5 X10'3 (1.8-7.7); NEUTROPHILS % (AUTO) 74.5 % (42-75); PLATELET COUNT 265 X10'3 (140-440); RED BLOOD COUNT 4.35 X10'6 (4.70-6.10); RED CELL DISTRIBUTION WIDTH 15.2 % (11.5-14.5); WHITE BLOOD COUNT 11.4 X10'3 (4.5-11.0)
[2024-02-01] MEDS ORDERED: acetaminophen 325mg tablet PO PRN (08:25)
[2024-02-01 10:00] VITALS: BP 126/81; PULSE 94; RESP 18; TEMP 98.5; O2SAT 96
[2024-02-01 12:37] VITALS: RESP 16; O2SAT 96
[2024-02-01 16:11] VITALS: RESP 16
== END 2024-02-01 16:28 | disposition home health service (06) | DRG 325 ==
LOC: PAS IN 06:58 → ORTHO 4S 15:15
PROVIDERS: ADMIT Orthopaedic Surgery; ATTEND Orthopaedic Surgery
PROC: 0SUW09Z Supplement Left Knee Joint, Tibial Surface with Liner, Open Approach (ICD-10-PCS; 2024-01-30)
PROC: 3E0T3BZ Introduction of Anesthetic Agent into Peripheral Nerves and Plexi, Percutaneous Approach (ICD-10-PCS; 2024-01-30)
PROC: 3E0T33Z Introduction of Anti-inflammatory into Peripheral Nerves and Plexi, Percutaneous Approach (ICD-10-PCS; 2024-01-30)
PROC: 0SPD09Z Removal of Liner from Left Knee Joint, Open Approach (ICD-10-PCS; principal; 2024-01-30 11:22)
DX: T84.093A Other mechanical complication of internal left knee prosthesis, initial encounter (principal); M65.862 Other synovitis and tenosynovitis, left lower leg; Y83.1 Surgical operation with implant of artificial internal device as the cause of abnormal reaction of the patient, or of later complication, without mention of misadventure at the time of the procedure; X58.XXXA Exposure to other specified factors, initial encounter; Y92.89 Other specified places as the place of occurrence of the external cause; Z79.899 Other long term (current) drug therapy
CPT/HCPCS: 36415; 80051; 80053; 82948; 85025; 87070; 87075; 87081; 97110; 97116; 97161; 97530; A4618; A7000; C1776; G0378; J0690; J1100; J1885; J2250; J2405; J2795; J3010; J3370; J3480; J3490; J7030; J7120

== ENCOUNTER 2024-02-15 15:11 | Outpatient (CLI) | payer MEDICAID | END 2024-02-15 23:59 | disposition home or self-care (01) | LOC: RAD 15:11 | PROVIDERS: ATTEND Nurse Practitioner Family | DX: N20.0 Calculus of kidney (principal); R31.0 Gross hematuria | CPT/HCPCS: 76770 ==

== ENCOUNTER → 2024-04-04 | Emergency (ER) | payer MEDICAID ==
[~2024-04-04] VITALS: Ht 188 cm; Wt 141.3 kg
[2024-04-04 12:03] LABS: BASOPHILS % (AUTO) 0.3 % (0-1); EOSINOPHILS # (AUTO) 0.3 X10'3 (0-0.9); EOSINOPHILS % (AUTO) 4.2 % (0-6); HEMATOCRIT 39.2 % (42.0-52.0); HEMOGLOBIN 12.5 g/dl (14.0-17.9); LYMPHOCYTES # (AUTO) 1.4 X10'3 (1.1-4.8); MEAN CORPUSCULAR HEMOGLOBIN 25.9 PG (27.0-31.0); MEAN CORPUSCULAR HGB CONC 31.8 g/dL (33.0-36.5); MEAN CORPUSCULAR VOLUME 81.4 FL (78-98); MEAN PLATELET VOLUME 7.6 FL (7.4-10.4); MONOCYTES # (AUTO) 0.6 X10'3 (0-0.9); MONOCYTES % (AUTO) 8.8 % (2-12); NEUTROPHILS # (AUTO) 4.4 X10'3 (1.8-7.7); NEUTROPHILS % (AUTO) 65.7 % (42-75); PLATELET COUNT 297 X10'3 (140-440); RED BLOOD COUNT 4.82 X10'6 (4.70-6.10); RED CELL DISTRIBUTION WIDTH 15.7 % (11.5-14.5); WHITE BLOOD COUNT 6.7 X10'3 (4.5-11.0)
[2024-04-04 12:06] VITALS: BP 113/83; PULSE 98; RESP 16; TEMP 98.5; O2SAT 98
[2024-04-04 12:12] LABS: PROTHROMBIN TIME 10.5 SECONDS (9.0-12.0)
== END | disposition home or self-care (01) ==
LOC: ER 11:02
DX: R60.0 Localized edema (principal); K21.9 Gastro-esophageal reflux disease without esophagitis; Z56.0 Unemployment, unspecified; Z72.89 Other problems related to lifestyle; Z98.890 Other specified postprocedural states; Z87.442 Personal history of urinary calculi; Z85.89 Personal history of malignant neoplasm of other organs and systems; Z79.899 Other long term (current) drug therapy
CPT/HCPCS: 36415; 85025; 85610; 93971; 99284

== ENCOUNTER 2024-04-18 13:16 | Emergency (ER) | payer MEDICAID ==
[2024-04-18] MEDS: HYDROcodone/acetaminophen 10/325mg tab PO ONE (14:13)
[2024-04-18] MEDS: metoclopramide 5 mg/ml inj IV ONE (14:13)
[2024-04-18] MEDS: diphenhydrAMINE 50 mg/ml inj IV ONE (14:13)
[2024-04-18] MEDS: dicyclomine 10 MG capsule PO ONE (14:14)
[2024-04-18 14:22] LABS: BASOPHILS % (AUTO) 0.3 % (0-1); EOSINOPHILS # (AUTO) 0.2 X10'3 (0-0.9); EOSINOPHILS % (AUTO) 1.5 % (0-6); HEMATOCRIT 37.3 % (42.0-52.0); LYMPHOCYTES # (AUTO) 1.5 X10'3 (1.1-4.8); LYMPHOCYTES % (AUTO) 14.8 % (21-51); MEAN CORPUSCULAR HEMOGLOBIN 26.2 PG (27.0-31.0); MEAN CORPUSCULAR HGB CONC 32.3 g/dL (33.0-36.5); MEAN CORPUSCULAR VOLUME 81.2 FL (78-98); MEAN PLATELET VOLUME 7.4 FL (7.4-10.4); MONOCYTES % (AUTO) 10.1 % (2-12); NEUTROPHILS # (AUTO) 7.4 X10'3 (1.8-7.7); NEUTROPHILS % (AUTO) 73.3 % (42-75); PLATELET COUNT 301 X10'3 (140-440); RED BLOOD COUNT 4.59 X10'6 (4.70-6.10); RED CELL DISTRIBUTION WIDTH 15.5 % (11.5-14.5)
[2024-04-18 14:35] LABS: ALANINE AMINOTRANSFERASE 26 U/L (12-78); ALBUMIN 3.7 G/DL (3.4-5.0); ALBUMIN/GLOBULIN RATIO 1.2 (1.1-1.5); ALKALINE PHOSPHATASE 87 IU/L (46-116); ANION GAP 7 (8-16); ASPARTATE AMINO TRANSFERASE 17 U/L (10-37); BILIRUBIN,TOTAL 1.1 MG/DL (0.1-1.0); BLOOD UREA NITROGEN 12 MG/DL (7-18); BUN/CREATININE RATIO 9.3 (10.0-20.0); CALCIUM 8.4 MG/DL (8.5-10.1); CHLORIDE 105 MMOL/L (99-107); CREATININE 1.29 MG/DL (0.60-1.10); GLUCOSE 103 MG/DL (70-104); LIPASE 15 U/L (16-77); POTASSIUM 3.5 MMOL/L (3.5-5.1); SODIUM 141 MMOL/L (135-145); TOTAL CARBON DIOXIDE 28.6 MMOL/L (24-32); TOTAL PROTEIN 6.9 G/DL (6.4-8.2); eGFR 59 ML/MIN
[2024-04-18] MEDS: normal saline 1000ml 1,000 ML IV ONE (15:26)
[2024-04-18] MEDS ORDERED: FLO0.4C PO (15:34)
[2024-04-18] MEDS ORDERED: PHEN-716 PO (15:34)
[2024-04-18] MEDS ORDERED: HYDR-3972 PO (15:34)
[2024-04-18 15:49] VITALS: BP 158/101; PULSE 78; RESP 16; TEMP 98.6; O2SAT 97
== END 2024-04-18 16:13 | disposition home or self-care (01) ==
LOC: ER 13:17
DX: N20.0 Calculus of kidney (principal); K21.9 Gastro-esophageal reflux disease without esophagitis; Z79.899 Other long term (current) drug therapy; Z87.442 Personal history of urinary calculi; Z72.89 Other problems related to lifestyle; Z56.0 Unemployment, unspecified; Z98.890 Other specified postprocedural states; Z85.89 Personal history of malignant neoplasm of other organs and systems
CPT/HCPCS: 36415; 74176; 80053; 83690; 85025; 96361; 96374; 96375; 99285; J1200; J2765; J7030

== ENCOUNTER 2024-07-02 14:41 | Emergency (ER) | payer MEDICAID ==
[~2024-07-02] VITALS: Ht 188 cm; Wt 142.7 kg
[~2024-07-02 14:41] MED LIST changes: +PHEN-716 PO
[2024-07-02 14:42] VITALS: BP 169/93; PULSE 95; RESP 18; TEMP 96.8; O2SAT 99
[2024-07-02] MEDS ORDERED: ALBU8HFA INH (15:51)
[2024-07-02] MEDS ORDERED: AZIT250T83 PO (15:51)
== END 2024-07-02 16:52 | disposition home or self-care (01) ==
LOC: ER 14:42
DX: J22 Unspecified acute lower respiratory infection (principal); J18.9 Pneumonia, unspecified organism; K21.9 Gastro-esophageal reflux disease without esophagitis; N40.0 Benign prostatic hyperplasia without lower urinary tract symptoms; Z79.899 Other long term (current) drug therapy; Z98.84 Bariatric surgery status
CPT/HCPCS: 71046; 99283

== ENCOUNTER 2024-10-27 10:04 | Emergency (ER) | payer MEDICAID ==
[~2024-10-27] VITALS: Ht 185.4 cm; Wt 138.6 kg
[2024-10-27 10:13] VITALS: BP 131/84; PULSE 97; RESP 17; TEMP 98.5; O2SAT 97
[2024-10-27] MEDS ORDERED: TRAM50TA2 PO (10:49)
[2024-10-27] MEDS ORDERED: AMOX500C2 PO (10:49)
== END 2024-10-27 10:58 | disposition home or self-care (01) ==
LOC: ER 10:06
DX: K04.7 Periapical abscess without sinus (principal); Z79.899 Other long term (current) drug therapy; Z87.442 Personal history of urinary calculi; Z56.0 Unemployment, unspecified; Z98.890 Other specified postprocedural states; Z72.89 Other problems related to lifestyle
CPT/HCPCS: 99282; 99283

== ENCOUNTER 2024-12-06 17:53 | Emergency (ER) | payer MEDICAID ==
[~2024-12-06] VITALS: Ht 188 cm; Wt 136.2 kg
[2024-12-06 17:57] VITALS: BP 169/87; PULSE 86; RESP 16; O2SAT 97
[2024-12-06] MEDS: acetaminophen 325mg tablet PO ONE (18:44)
[2024-12-06] MEDS: BUPIVAcaine 0.5% W/EPI /PF 10ml vial IJ STA (18:46)
--- NOTE | 2024-12-06 18:50 | Physician Documentation ---
HPI ~ General Chief Complaint: Tooth Problem Stated Complaint: BROKEN TOOTH Time Seen by MD: 18:18 Primary Medical Doctor: [facility] History of Present Illness HPI Comment This is a 49-year-old male who presents with a broken left rear upper molar, patient reports he has severe dental problems and recently had teeth on the opposite side removed with chewing on the left side and felt the affected tooth break last night. Patient was seen earlier today by his dentist your sosa mmended patient be seen by a oral surgeon for removal of the tooth, patient reports he is already on antibiotics for the teeth that he had removed on the right side therefore his dentist did not start him on any other antibiotics. Patient reports that his dentist would not prescribe any narcotic medications for his pain. Medication Reconciliation Allergies: Coded Allergies: No Known Allergies (Unverified , 07/02/24) Scheduled Alfuzosin Hcl (Uroxatral), 1 TAB PO HS, (Reported) Allopurinol (Allopurinol), 1 TAB PO HS, (Reported) Dexlansoprazole (Dexilant), 1 CAP PO DAILY, (Reported) Duloxetine HCl (Duloxetine HCl), 1 CAP PO HS, (Reported) Oxybutynin Chloride (Ditropan Xl), 1 TAB PO HS, (Reported) Phenazopyridine HCl (Pyridium), 1 TAB PO Q8H Sertraline Hcl* (Zoloft*), 100 MG PO HS, (Reported) Scheduled PRN Hydrocodone Bit/Acetaminophen 5/325 MG ([place] 5/325 MG), 1 TAB PO Q4H PRN for moderate or severe pain, (Reported) Zolpidem Tartrate* (Ambien*), 1 TAB PO HS PRN for sleep, (Reported) Past Medical History Past Medical History: GERD, BPH, Hernia, Kidney Stones, *CANCER* Past Surgical History: abdominal surgery, brain surgery, cancer surgery, gastric bypass, orthopedic surgeries, other Other Past Surgical History: J tube placement, esohpageal removal Patient History: FH myocardial infarction male first degree age known FATHER (Esophageal cancer ) FH: breast cancer MOTHER FH: diabetes mellitus FATHER (Esophageal cancer ) FH: thyroid cancer MOTHER Alcohol Use: Occasionally Drug Use: none Lives with: Family Lives In: Home Occupation: unemployed Review of Systems ROS Left upper rear molar pain as stated above in the HPI, otherwise all systems are reviewed and negative. Physical Exam Vital Signs: Temperature: 84.0, Source: Oral, Heart Rate: 86, Respiratory Rate: 16, BP: 169/87, Pulse Oximetry: 97, Weight: 136.200 Oxygen Flow Rate: 0 Physical Exam VITALS: Reviewed and as above. GENERAL: Alert, nontoxic appearing, no apparent distress. HEENT: Left rear upper molar severely decayed and medial portion missing, gingiva non erythematous, no drainage, no induration, no fluctuance, no swelling. Uvula midline, oropharynx nonerythematous, no elevation of the tongue . No facial swelling, no submandibular swelling. RESPIRATORY: No increased work of breathing, no respiratory distress, speaking in full clear sentences Procedures Procedures A local dental injection was performed utilizing 6 mL of 0.5% bupivacaine with epinephrine resulting in almost immediate resolution of pain. Progress Results/Orders Results/Orders Completed Orders - KAREN CONLEY [employer]DES[employer]ER Acetaminophen 325mg Tablet (Tylenol Tabl (12/06/24 18:30) Bupivacaine 0.5% W/Epi/Pf (Sensorcaine-E (12/06/24 18:30) Medications Received in ER Medications (Trade) Dose Ordered Sig/Edilberto Route PRN Reason Start Time Stop Time Status Last Admin Dose Admin (Tylenol tablet) 975 mg ONCE ONCE PO 12/06/24 18:30 12/06/24 18:31 DC 12/06/24 18:44 975 MG Vital Signs 12/06/24 12/06/24 17:57 19:16 Temp 84.0 84.0 Pulse 86 Resp 16 B/P (MAP) 169/87 Pulse Ox 97 O2 Flow Rate 0 Medical Decision Making Findings This well appearing 49-year-old male presented with dental pain to the left upper posterior molar. Based on history and physical exam I have low clinical suspicion for peritonsillar abscess, uvulitis, deep tissue space infection of the head/neck, or impending airway compromise. There was no submandibular swelling or elevation of the tongue, the uvula was midline, patient is able to swallow fluids and secretion without difficulty, there is no increased work of breathing or noisy breathing. Remainder of physical exam was benign and vital signs stable. A local dental anesthetic injection was performed resulting in immediate resolution of pain. This patient presented for dental pain, he is already under the care of a dentist and on antibiotics awaiting an appointment with an oral surgeon, purposes visit is pain control. Patient received Tylenol and is dental injection in department and directed to follow up with the primary care provider and dentist as soon as possible. Patient provided careful return to care precautions which he did verbalize understanding of. Differential Dx:Considerations: Include: Alveolar fracture, Alveolar osteitis, ANUG, Facial Cellulitis, Periapical abscess Departure Disposition: HOME / SELF CARE / HOMELESS Impression: Primary Impression: Toothache Condition: Improved Discharge Instructions: Dental Pain Additional Instructions: Please follow up with your primary care provider and dentist as soon as possible, try to get in as soon as possible with an oral surgeon. You may use a 1000 mg of acetaminophen (Tylenol) 4 times a day for pain. Please return to the emergency department for any new or worsening concerning symptoms including but not limited to difficulty breathing, difficulty swallowing, facial swelling, or a fever over 100.4 that does not lower with ibuprofen or Tylenol. Referrals: NO PRIMARY CARE PROVIDER (PCP) Education Educated: Patient Educated regarding: diagnosis, treatment, prognosis, need for follow up Signature Scribe Signature: No scribe Attestation: The note accurately reflects work and decisions made by me.FLAKITA Espinoza 12/06/24 22:15 KAREN CONLEY December 06, 2024 18:50
[2024-12-06 19:16] VITALS: TEMP 84
== END 2024-12-06 19:17 | disposition home or self-care (01) ==
LOC: ER 17:54
DX: K08.89 Other specified disorders of teeth and supporting structures (principal); K21.9 Gastro-esophageal reflux disease without esophagitis; Z87.442 Personal history of urinary calculi; Z98.890 Other specified postprocedural states; Z72.89 Other problems related to lifestyle; Z56.0 Unemployment, unspecified; Z79.899 Other long term (current) drug therapy
CPT/HCPCS: 64400; 99284